=== PATIENT | female | born 1950 | race Caucasian/White ===

== ENCOUNTER 2022-02-21 15:26 | Inpatient (IN) ==
[2022-02-21] MEDS ORDERED: Iopamidol - 370 500 ML MLS IVP ONE (17:49)
[2022-02-21 18:18] LABS: Basophils % 0.2 %; Eosinophils # 0.5 K/mcL (0.0-0.6); Eosinophils % 3.9 %; Hematocrit 32.1 % (35.3-44.9); Hemoglobin 9.7 g/dL (11.5-15.4); Immature Granulocytes % 0.3 % (0-4); Lymphocytes # 2.4 K/mcL (0.6-4.6); Lymphocytes % 19.5 %; Mean Corpuscular HGB Conc 30.2 g/dL (31.6-35.5); Mean Corpuscular Hemoglobin 25.1 pg (28.0-33.3); Mean Corpuscular Volume 82.9 fL (83.0-100.0); Mean Platelet Volume 9.7 fL (9.4-12.4); Monocytes % 8.1 %; Neutrophils # 8.4 K/mcL (1.6-8.9); Platelet Count 316 K/mcL (140-400); Red Blood Count 3.87 M/mcL (3.82-4.97); Red Cell Distribution Width 15.4 % (11.5-14.5); White Blood Count 12.3 K/mcL (4.3-11.1)
[2022-02-21 18:42] LABS: Albumin/Globulin Ratio 1.4 (1.1-2.2); Bilirubin,Direct 0.1 mg/dL (0.0-0.2); Bilirubin,Indirect 0.3 mg/dL (0.0-1.0); Bilirubin,Total 0.4 mg/dL (0.3-1.0); Calcium 9.2 mg/dL (8.6-10.3); Globulin 2.9 g/dL (2.4-3.5); Total Protein 6.9 g/dL (6.4-8.9)
[2022-02-21] MEDS ORDERED: Vancomycin (wt based) 1,000 MG VIAL IV STA (19:55)
[2022-02-21] MEDS ORDERED: Piperacillin/Tazobactam 3.375 GM in 0.9 % Sodium Chloride Mini Bag 100 ML IVPB ONE (20:48)
[2022-02-21] MEDS ORDERED: Melatonin 3 MG TABLET PO PRN (21:03)
[2022-02-21] MEDS ORDERED: Ondansetron ODT 4 MG TAB.RAPDIS SL PRN (21:03)
[2022-02-21] MEDS ORDERED: Naloxone 0.4 MG/ML INJ IVP PRN (21:03)
[2022-02-22] MEDS ORDERED: *HR* Dextrose 50 % in Water (Syg) 50 ML SYRINGE IVP PRN ×2 (00:32→18:02)
[2022-02-22] MEDS ORDERED: Dextrose Gel 15 GM/37.5 ML TUBE PO PRN ×4 (00:32→18:02)
[2022-02-22] MEDS ORDERED: D5% in Water 1,000 ML IVC PRN ×2 (00:32→18:02)
[2022-02-22] MEDS ORDERED: Saliva Stimulant 44.3ml BOTTLE PO PRN ×2 (00:33→18:02)
[2022-02-22] MEDS ORDERED: Acetaminophen 325 MG TABLET PO PRN ×2 (01:29→18:02)
[2022-02-22] MEDS ORDERED: *HR* HYDROcodone/Acet 5/325 mg TABLET PO PRN ×2 (01:29→18:02)
[2022-02-22 03:01] LABS: Hematocrit 27.3 % (35.3-44.9); Hemoglobin 8.2 g/dL (11.5-15.4); Mean Corpuscular Hemoglobin 24.7 pg (28.0-33.3); Mean Corpuscular Volume 82.2 fL (83.0-100.0); Platelet Count 269 K/mcL (140-400); Red Blood Count 3.32 M/mcL (3.82-4.97); Red Cell Distribution Width 15.2 % (11.5-14.5); White Blood Count 10.5 K/mcL (4.3-11.1)
[2022-02-22] MEDS: *HR* OxyCODONE Immed Rel 5 MG TABLET PO PRN ×3 (04:15→18:59)
[2022-02-22] MEDS ORDERED: Piperacillin/Tazobactam 3.375 GM in 0.9 % Sodium Chloride Mini Bag 100 ML IVPB SCH (06:00)
[2022-02-22 08:08] LABS: INR 1.2; Prothrombin Time 13.3 Seconds (9.4-12.1)
[2022-02-22] MEDS ORDERED: polyethylene glycoL 3350 17 GM POWD.PACK PO SCH (09:00)
[2022-02-22] MEDS ORDERED: Lactobacillus 1 EACH CAP.SPRINK PO SCH (09:00)
[2022-02-22] MEDS ORDERED: Lidocaine -MPF 2% 2 ML VIAL ONE (16:45)
[2022-02-22] MEDS ORDERED: *HR* Propofol 200 MG/20 ML VIAL IVP ONE (16:46)
[2022-02-22] MEDS ORDERED: Bupivacaine/EPI 1:200k 0.25% 50 ML VIAL ONE (16:52)
[2022-02-22] MEDS ORDERED: Ringers Solution, Lactated 1,000 ML IVC SCH ×2 (17:00→18:02)
[2022-02-22] MEDS ORDERED: Ketamine HCL *QUVA* 50mg (1mL) SYRINGE ONE (17:05)
[2022-02-22] MEDS ORDERED: Melatonin 3 MG TABLET PO PRN (18:02)
[2022-02-22] MEDS ORDERED: Ondansetron ODT 4 MG TAB.RAPDIS SL PRN (18:02)
[2022-02-22] MEDS ORDERED: Naloxone 0.4 MG/ML INJ IVP PRN (18:02)
[2022-02-22] MEDS ORDERED: Vancomycin (wt based) 1,000 MG VIAL IV STA (18:02)
[2022-02-22] MEDS: Piperacillin/Tazobactam 3.375 GM in 0.9 % Sodium Chloride Mini Bag 100 ML IVPB SCH (18:47)
[2022-02-22] MEDS: Lactobacillus 1 EACH CAP.SPRINK PO SCH (20:15)
[2022-02-23] MEDS: Piperacillin/Tazobactam 3.375 GM in 0.9 % Sodium Chloride Mini Bag 100 ML IVPB SCH ×2 (02:44→11:36)
[2022-02-23] MEDS: *HR* OxyCODONE Immed Rel 5 MG TABLET PO PRN ×2 (02:44→14:01)
[2022-02-23 03:58] LABS: Calcium 8.9 mg/dL (8.6-10.3); Magnesium 1.8 mg/dL (1.6-2.6); Phosphorous 3.7 mg/dL (2.7-4.5)
[2022-02-23] MEDS: Lactobacillus 1 EACH CAP.SPRINK PO SCH (08:17)
[2022-02-23] MEDS ORDERED: Cholecalciferol (D-3) 1,000 UNIT (25MCG) TABLET PO SCH ×2 (09:00)
[2022-02-23] MEDS ORDERED: lisinopriL 20 MG TABLET PO SCH ×2 (09:00)
[2022-02-23] MEDS ORDERED: polyethylene glycoL 3350 17 GM POWD.PACK PO SCH (09:00)
[2022-02-23] MEDS ORDERED: FLUoxetine 20 MG CAPSULE PO SCH ×2 (09:00)
[2022-02-23] MEDS ORDERED: Loratadine 10 MG TABLET PO SCH ×2 (09:00)
[2022-02-23 10:14] VITALS: BP 128/58; PULSE 64; TEMP 98; O2SAT 94
== END 2022-02-23 14:35 | disposition home or self-care (01) | DRG 572 ==
LOC: EMEROOARM 15:26 → CDU 15:26 → SUATTDRO 21:25 → 4WAOSI 21:26 → SUATTDRO 02-22 12:56
PROVIDERS: ADMIT Internal Medicine; ATTEND Internal Medicine